=== PATIENT | male | born 2000 | race Native Hawaiian/Other Pacific Islander ===

== ENCOUNTER 2025-03-04 19:02 | Emergency (ER) | payer OTHER, SELFPAY ==
[2025-03-04 19:03] VITALS: BMI 29.9
[2025-03-04 19:14] VITALS: BP 146/91; PULSE 99; RESP 18; TEMP 36.8; O2SAT 97
--- NOTE | 2025-03-04 20:11 | PD.EDSKIN ---
ED Skin Abcess FB-RME/HPI General Chief complaint: Skin/Abscess/Foreign Body Stated complaint: RASH TO PENIS Time Seen by Provider: 03/04/25 19:41 Arrival date/time: 03/04/25 19:02 RME / HPI RME / HPI narrative: 24-year-old healthy male presents to the ER complaining of itchy rash to his penis x 2 days with his girlfriend. Denies any urethral discharge, nausea, vomiting, fever, abdominal pain, flank pain, scrotal pain, trauma. His girlfriend denies any symptoms. Related Data Previous Rx's ?Medication ?Instructions ?Recorded ibuprofen 800 mg tablet (IBU) 800 mg PO Q8H #20 tabs 03/01/23 clotrimazole 1 % topical cream 1 applic topical BID 4 weeks #15 03/04/25 grams Allergies Allergy/AdvReac Type Severity Reaction Status Date / Time No Known Allergies Allergy Verified 03/04/25 19:05 Review of Systems Review of Systems Systems Reviewed: All systems reviewed, normal except as documented ED Exam Narrative Physical exam: Constitutional: Vital Signs Reviewed. Well appearing. No acute distress. Not toxic appearing. Head: Normocephalic, atraumatic. Eyes: Conjunctiva clear. ENT: Mucous membranes moist. Neck: Trachea midline. Normal range of motion. No nuchal rigidity. Respiratory: Normal effort. No respiratory distress or accessory muscle use. Neuro: Alert and oriented. Speech normal. No focal gross motor or sensory deficits observed. Skin: Warm, dry, normal color. Psych: Pleasant. Normal affect. Cooperative. : Rhiannon the payroll technician was hydraulic blocker with me, patient is uncircumcised. Patient has erythematous scaly rash noted to his penile head. No phimosis or paraphimosis and foreskin is easily retractable. No urethral discharge. No scrotal edema or tenderness to palpation bilaterally. Normal testicular reflex bilaterally. Course Quality Measures none Reevaluation(s) Reevaluation #1: At the time of reassessment, the patient remains alert and oriented ?3 with GCS 15. Vitals are normal, pain is controlled, and the patient is tolerating oral intake without nausea or vomiting. The patient is agreeable to discharge and verbalizes understanding of the diagnosis, studies, treatment plan, medications (including side effects/precautions), and strict ER return precautions as discussed in the ED. All concerns were addressed, and the patient is comfortable with the plan. Vital Signs Vital signs: Vital Signs Temperature 98.2 F 03/04/25 19:14 Pulse Rate 99 03/04/25 19:14 Respiratory Rate 18 03/04/25 19:14 Blood Pressure 146/91 H 03/04/25 19:14 Pulse Oximetry (%) 97 03/04/25 19:14 Oxygen Delivery Method Room Air 03/04/25 19:14 Skin / Abscess / Foreign Body MDM Narrative MDM Narrative:: MDM Suspect: Phimosis complicated by Balanopsthitis Doubt cellulitis given lack induration or severe erythema No signs of abscess No history of trauma No paraphimosis Pt still making urine without difficulty No scrotal pathology I offered patient empiric treatment for gonorrhea and chlamydia however he declined additionally doubt urethritis given lack of urethral discharge and obvious balanitis Advised patient to follow-up with his PMD for full STD panel testing Plan: hygiene education, f/u with pmd and urology, strict return precautions, clotrimazole. At the time of reassessment, the patient remains alert and oriented ?3 with GCS 15. Vitals are normal, pain is controlled, and the patient is tolerating oral intake without nausea or vomiting. The patient is agreeable to discharge and verbalizes understanding of the diagnosis, studies, treatment plan, medications (including side effects/precautions), and strict ER return precautions as discussed in the ED. All concerns were addressed, and the patient is comfortable with the plan. Patient data External records reviewed:: [facility] previous records Clinical information provided by:: patient Social determinants that could affect healthcare access:: none Patient has the following chronic illnesses:: As noted How is presenting disease/condition affected by chronic disease/condition?: no chronic disease Evaluation data The following diagnostics were reviewed and interpreted by me:: other (specify) Lab and/or radiology exams considered but not ordered:: Additional Labs and radiology considered, but not ordered as they were not clinically indicated at this time. Interpretation Summary: None Medications / Prescriptions Medications or Prescriptions considered but not ordered:: I considered prescription management (both outpatient prescriptions AND drug treatment in the ER) and decided that this was necessary and was prescribed as charted. Medication administrations:: As noted Consultations Consultation(s) initiated? (list below): No Diagnosis Skin/Abscess Differential Diagnosis: dermatophytosis, herpes zoster and contact dermatitis Most likely diagnosis given after review of the tests above:: Balanitis Admission Indicated Admission indicated?: not indicated Admission Request Was there a request for admission?: No Disposition Plan Disposition Plan: Discharge Discharge Attestation Discharge Attestation: The patient and all family members were given an opportunity to ask questions and understood the discharge instructions. Discharge instructions specifically effects, indications for sooner follow up or return to the emergency department, and the expected course of current diagnosis. Patient condition: Stable Discharge Plan Plan Patient Disposition: HOME (Self Care) Prescriptions/Referrals Prescriptions/Med Rec: New clotrimazole 1 % cream 1 applic topical BID 28 Days Qty: 15 0RF No Action ibuprofen [IBU] 800 mg tablet 800 mg PO Q8H Qty: 20 0RF Referrals: Family [facility] [Provider Group] - In 1 week No Primary/Family,Physician [Referring Provider] - In 1 week Problem List Clinical Impression: Balanitis Patient/Caregiver Discharge Instructions Education Materials: ED Balanitis Additional Instructions: Follow up with your primary medical doctor within 24 hours. Return to the Emergency Room immediately for any new, worsening, continuing symptoms or any concerns at all. Return to the Emergency Room within 24 hours if you are unable to follow up with your primary medical doctor within 24 hours. Soak the penis in warm water with a small amount of salt two to three times a day while the irritation or swelling continues. Use only clean water?do not use soap under the foreskin if uncircumcised. Avoid bubble baths, bath oils, powders, or any products that could irritate the skin. Do not pull back the foreskin forcefully. If the foreskin can be gently retracted, rinse under it carefully with clean water only. Parents may use a Q-tip dipped in clean water to gently clean between the foreskin and the tip of the penis until the redness and swelling go away. Once healed, regular bathing with clean water is enough. Avoid soaps or harsh cleansers under the foreskin even after symptoms improve. Print Language: Tristanian Stand Alone Forms: Steph Award Info., Patient Portal Info Letter PA/HAMILTON Supervising Physician PA/HAMILTON Supervising Physician: Dr. Tay
== END 2025-03-04 20:51 | disposition home or self-care (01) ==
PROVIDERS: Emergency Provider Emergency Medicine; PCP Nurse Practitioner Family
DX: N48.1 Balanitis (principal)
CPT/HCPCS: 99281